=== PATIENT | female | born 2000 ===

== ENCOUNTER 2020-09-13 04:16 | Inpatient (IN) | payer BC, SELFPAY ==
[2020-09-13] VITALS (24 sets, daily range): BP systolic 95–114; BP diastolic 45–64; PULSE 66–137; RESP 15–20; TEMP 36.1–38.1; O2SAT 94–100; BMI 23.3; BMI 21.7
--- NOTE | ~2020-09-13 | CT_ITS ---
EXAMINATION: CT ABDOMEN AND PELVIS WITH CONTRAST CLINICAL INFORMATION: Right lower quadrant pain COMPARISON: None TECHNIQUE: Multidetector volumetric images were obtained from the superior aspect of the liver through the pubic symphysis following administration 75 mL of Omnipaque 350 intravenous contrast. Sagittal and coronal reformatted images were obtained on the technologist's workstation. Oral contrast: No This CT examination was performed using dose optimization techniques as appropriate, variously including the following: *Automated exposure control *Adjustment of mA and/or kV according to patient size (this includes techniques or standardized protocols for targeted exams where dose is matched to indication/reason for exam; i.e. extremities or head) *Use of iterative reconstruction technique DLP: 460 mGy-cm FINDINGS: LUNG BASES: The visualized lung bases are unremarkable. LIVER, GALLBLADDER, AND BILIARY TREE: The liver is normal in size, shape, and attenuation. Subcentimeter hypodensity in the dome of the right hepatic lobe is too small to characterize, statistically favoring a cyst. No biliary ductal dilatation is present. The gallbladder is unremarkable with no evidence of radiopaque gallstones, gallbladder wall thickening, or obvious pericholecystic inflammatory changes. PANCREAS: Unremarkable. SPLEEN: Unremarkable. ADRENAL GLANDS: Unremarkable. KIDNEYS AND URETERS: The kidneys are normal in size, shape, and attenuation. Tiny hypodensity in the lower right kidney favors a cyst. No hydronephrosis, hydroureter, or obstructing calculi seen. No perinephric stranding. BLADDER: Unremarkable. GASTROINTESTINAL TRACT: No evidence of bowel obstruction. No significant bowel wall thickening is seen. The appendix contains fluid and appendicoliths, measuring up to 7 mm in diameter. Subtle periappendiceal stranding is noted. No free fluid or free air is seen. ABDOMINAL WALL: No significant hernia is appreciated. LYMPH NODES: Normal. VASCULAR: Unremarkable for patient age. PELVIC VISCERA: Unremarkable. OSSEOUS STRUCTURES: Unremarkable. CT/CT abdomen pelvis w con IMPRESSION: Mildly dilated, fluid-filled appendix with appendicoliths and subtle adjacent stranding. Appearance is concerning for mild/early changes of acute appendicitis in the setting of right lower quadrant pain.
--- NOTE | 2020-09-13 04:30 | PC.NURSE ---
PT TO ROOM WITH C/O LOWER ABD PAIN WHICH STARTED BEFORE 1600 YESTERDAY. PT CHG INTO GOWN AND MD AT BEDSIDE FOR EVAL.
--- NOTE | 2020-09-13 04:30 | ED.ABDPAIN ---
HPI - Abdominal Pain General Chief Complaint: Abdominal Pain Stated Complaint: ABDOMINAL PAIN Time Seen by Provider: 09/13/20 04:30 Source: patient and EMS Mode of arrival: EMS Limitations: no limitations History of Present Illness HPI narrative: 19 yo female otherwise healthy here with periumbilical pain with nausea that has worsened since 4pm tried naprosyn with no relief MD elicited complaint: abdominal pain Pertinent past history: none Onset (ago): hour(s) (12) Pain Consistency: constant Location: epigastric and periumbilical Severity: moderate Quality: stabbing Radiation: none Migration to: no migration Exacerbating factors: movement Relieving factors: nothing Associated symptoms: nausea and vomiting Treatments prior to arrival: NSAIDs Related Data Allergies Allergy/AdvReac Type Severity Reaction Status Date / Time No Known Allergies Allergy Verified 09/13/20 04:30 Review of Systems Review of Systems Constitutional : No Weight loss, No Fever, No Chills ENT/Mouth : No sore throat, No Rhinorrhea Eyes: No Swelling, No Redness Cardiovascular : No Chest Pain, No SOB, NoEdema Respiratory : No Cough, No Sputum, No Wheezing Gastrointestinal : Positive Nausea, pos Vomiting, no Diarrhea, positive abdominal Pain, No Hematochezia, No Melena Genitourinary : No Dysuria, No Urinary Frequency, No Hematuria, No Urgency Musculoskeletal : No joint pain, No Myalgias, No Joint Swelling Skin : No Skin Lesions, No rash Neuro : No Weakness, No Numbness, No Dizziness, No Headache Psych : No Anxiety/Panic, No Depression Heme/Lymph: No Bruising, No Lymphadenopathy Endocrine : No Polyuria, No Polydipsia All other systems reviewed and are negative. Physical Exam Vital Signs: Vital Signs: Last Vital Signs Temp 98.5 F 09/13/20 06:00 Pulse 84 09/13/20 06:00 Resp 16 09/13/20 06:00 BP 96/60 09/13/20 06:00 Pulse Ox 100 09/13/20 06:00 Body Mass Index 23.3 Appearance: Alert. Oriented X3. No acute distress. Eyes: Pupils equal, round and reactive to light. ENT: Pharynx normal. Neck: Normal inspection. Neck supple. CVS: Normal heart rate and rhythm. Pulses normal. Respiratory: No respiratory distress. Breath sounds normal. Abdomen: Soft and moderate periumbilical pain with RLQ ttp as well, pos Rovsing sign Skin: Skin warm and dry. Normal skin color. Normal skin turgor. Extremities: No lower extremity edema. No calf ttp Neuro: Oriented X 3. No motor deficit. No sensory deficit. Course Course Course Narrative: at this time 608am infection suspected from appendicitis, IV zosyn ordered along with lactic acid and cultures surgery called 615am plan to admit to surgery MDM - Abdominal Pain MDM Narrative Medical decision making narrative: 19 yo female no PMH here with lower abdominal pain n/v since 4pm yesterday - at this time will need labs, IVF, IV morphine for pain, CT scan for appendicitis. Lab Data Result diagrams: 09/13/20 04:57 09/13/20 04:57 Labs: Lab Results 09/13/20 09/13/20 09/13/20 Range/Units 04:57 04:57 04:57 WBC 17.2 H (4.8-10.8) X10*3/uL RBC 4.39 (4.20-5.50) X10*6/uL Hgb 12.1 (12.0-16.0) g/dl Hct 36.6 L (37-47) % MCV 83.4 (80-98) fL MCH 27.6 (27.0-33.0) pg MCHC 33.1 (31.0-35.0) g/dl RDW 13.0 (11.0-16.0) % Plt Count 270 (160-400) X10*3/uL MPV 10.6 (9.4-12.3) fL Immature Gran % (Auto) 0.3 (0.0-0.4) % Neut % (Auto) 82.3 H (45-73) % Lymph % (Auto) 7.6 L (20-40) % [place] % (Auto) 8.5 (2-11) % Eos % (Auto) 1.0 (0-4) % Baso % (Auto) 0.3 (0-2) % Lymph # (Auto) 1.3 (1.2-4.9) X10*3/uL [place] # (Auto) 1.5 H (0.1-1.2) X10*3/uL Eos # (Auto) 0.2 (0.0-0.4) X10*3/uL Baso # (Auto) 0.1 (0.0-0.2) X10*3/uL Abs Immat Gran (auto) 0.06 H (0.00-0.03) X10*3/uL Absolute Neuts (auto) 14.1 H (2.0-8.3) X10*3/uL Absolute Nucleated RBC 0.000 (0.0-0.012) X10*3/uL Nucleated RBC % (auto) 0.0 (0.0-0.2) /100WBC Hold Blue Top SEE NOTE Sodium 139 (135-145) mmol/L Potassium 3.6 (3.3-5.1) mmol/L Chloride 107 (96-108) mmol/L Carbon Dioxide 23 (22-29) mmol/L Anion Gap 13 (12-20) BUN 14 (9-16) mg/dL Creatinine 0.64 (0.5-1.4) mg/dL Estim Creat Clear Calc 106.7 Estimated GFR > 60 Random Glucose 107 (60-115) mg/dL Calcium 8.7 (8.4-10.2) mg/dL Magnesium 1.8 (1.6-2.6) mg/dL Total Bilirubin 0.3 (0.0-1.0) mg/dL Direct Bilirubin 0.2 (0.0-0.5) mg/dL AST 15 (5-31) U/L ALT 11 (0-31) U/L Alkaline Phosphatase 57 (39-117) U/L Total Protein 6.9 (6.5-8.0) g/dL Albumin 4.3 (3.5-5.0) g/dL Lipase 37 (8-78) U/L Urine Color Urine Appearance Urine pH (5.0-8.0) Ur Specific [place] (1.005-1.025) Urine Protein (NEG-TRACE) MG/DL Urine Glucose (UA) (NEG) MG/DL Urine Ketones (NEG) MG/DL Urine Blood (NEG) Urine Nitrite (NEG) Ur Leukocyte Esterase (NEG) Urine Test (NEGATIVE) 09/13/20 09/13/20 Range/Units 04:57 04:57 WBC (4.8-10.8) X10*3/uL RBC (4.20-5.50) X10*6/uL Hgb (12.0-16.0) g/dl Hct (37-47) % MCV (80-98) fL MCH (27.0-33.0) pg MCHC (31.0-35.0) g/dl RDW (11.0-16.0) % Plt Count (160-400) X10*3/uL MPV (9.4-12.3) fL Immature Gran % (Auto) (0.0-0.4) % Neut % (Auto) (45-73) % Lymph % (Auto) (20-40) % [place] % (Auto) (2-11) % Eos % (Auto) (0-4) % Baso % (Auto) (0-2) % Lymph # (Auto) (1.2-4.9) X10*3/uL [place] # (Auto) (0.1-1.2) X10*3/uL Eos # (Auto) (0.0-0.4) X10*3/uL Baso # (Auto) (0.0-0.2) X10*3/uL Abs Immat Gran (auto) (0.00-0.03) X10*3/uL Absolute Neuts (auto) (2.0-8.3) X10*3/uL Absolute Nucleated RBC (0.0-0.012) X10*3/uL Nucleated RBC % (auto) (0.0-0.2) /100WBC Hold Blue Top Sodium (135-145) mmol/L Potassium (3.3-5.1) mmol/L Chloride (96-108) mmol/L Carbon Dioxide (22-29) mmol/L Anion Gap (12-20) BUN (9-16) mg/dL Creatinine (0.5-1.4) mg/dL Estim Creat Clear Calc Estimated GFR Random Glucose (60-115) mg/dL Calcium (8.4-10.2) mg/dL Magnesium (1.6-2.6) mg/dL Total Bilirubin (0.0-1.0) mg/dL Direct Bilirubin (0.0-0.5) mg/dL AST (5-31) U/L ALT (0-31) U/L Alkaline Phosphatase (39-117) U/L Total Protein (6.5-8.0) g/dL Albumin (3.5-5.0) g/dL Lipase (8-78) U/L Urine Color DARK YELLOW Urine Appearance HAZY Urine pH 7.0 (5.0-8.0) Ur Specific [place] 1.020 (1.005-1.025) Urine Protein NEG (NEG-TRACE) MG/DL Urine Glucose (UA) NEG (NEG) MG/DL Urine Ketones NEG (NEG) MG/DL Urine Blood NEG (NEG) Urine Nitrite NEG (NEG) Ur Leukocyte Esterase NEG (NEG) Urine Test NEGATIVE (NEGATIVE) Discharge Plan Discharge Clinical Impression: Abdominal pain Qualifiers: Abdominal location: lower abdomen, unspecified Qualified Code(s): R10.30 - Lower abdominal pain, unspecified Leukocytosis Qualifiers: Leukocytosis type: unspecified Qualified Code(s): D72.829 - Elevated white blood cell count, unspecified Acute appendicitis Qualifiers: Acute appendicitis type: with localized peritonitis Appendicitis gangrene presence: without gangrene Appendicitis perforation presence: without perforation Appendicitis abscess presence: without abscess Qualified Code(s): K35.30 - Acute appendicitis with localized peritonitis, without perforation or gangrene Patient Disposition: Admitted As Inpatient [facility] Past Medical History Attestation statement: The following information was validated with the patient. Medical History No active medical problems Social History Social History (Updated 09/13/20 @ 04:38 by Jeanna Nuñez DO) Smoking Status: Never smoker Use of substances other than those prescribed or required for medical reasons: No Advance Directives: No
[2020-09-13] MEDS: Morphine Sulfate 4 MG/ML CARTRIDGE IVPUSH ×3 (05:06→09:27)
[2020-09-13] MEDS: 0.9 % Sodium Chloride 1,000 ML 999 ML IVCONT ×2 (05:07→06:22)
[2020-09-13] MEDS: ondansetron HCL 4 MG/2 ML VIAL IVPUSH (05:07)
[2020-09-13 05:15] LABS: Basophils Absolute Auto 0.1 X10*3/uL (0.0-0.2); Basophils Percent Auto 0.3 % (0-2); Eosinophils Absolute Auto 0.2 X10*3/uL (0.0-0.4); Hematocrit 36.6 % (37-47); Hemoglobin 12.1 g/dl (12.0-16.0); Imm Gran Abs Auto 0.06 X10*3/uL (0.00-0.03); Imm Gran Pct Auto 0.3 % (0.0-0.4); Lymphocytes Absolute Auto 1.3 X10*3/uL (1.2-4.9); Lymphocytes Percent Auto 7.6 % (20-40); MANUAL DIFF FLAG NO; Mean Corpuscular HGB Conc 33.1 g/dl (31.0-35.0); Mean Corpuscular Hemoglobin 27.6 pg (27.0-33.0); Mean Corpuscular Volume 83.4 fL (80-98); Mean Platelet Volume 10.6 fL (9.4-12.3); Monocytes Absolute Auto 1.5 X10*3/uL (0.1-1.2); Monocytes Percent Auto 8.5 % (2-11); Neutrophils Absolute Auto 14.1 X10*3/uL (2.0-8.3); Neutrophils Percent Auto 82.3 % (45-73); Platelet Count 270 X10*3/uL (160-400); Red Blood Count 4.39 X10*6/uL (4.20-5.50); White Blood Count 17.2 X10*3/uL (4.8-10.8)
[2020-09-13 05:17] LABS: Glucose Urine UA NEG (NEG); Leukocyte Esterase Urine NEG (NEG); Nitrite Urine NEG (NEG); Urine Blood NEG (NEG); Urine Ketones NEG (NEG); Urine Protein NEG (NEG-TRACE)
[2020-09-13 05:18] LABS: Appearance Urine HAZY; Color Urine DARK YELLOW; UPreg QC Valid YES; Urine Pregnancy NEGATIVE (NEGATIVE)
--- NOTE | 2020-09-13 05:26 | PC.NURSE ---
IV PLACED TO LAC, LABS DRAWN TO LAB. PT RATING PAIN 8/10 AND MEDICATED PER EMAR FOR PAIN AND NAUSEA. NS UP AND RUNNING W/O SITE INTACT.
[2020-09-13 05:39] LABS: Alanine Aminotransferase 11 U/L (0-31); Albumin Level 4.3 g/dL (3.5-5.0); Alkaline Phosphatase 57 U/L (39-117); Aspartate Amino Transferase 15 U/L (5-31); Bilirubin Direct 0.2 mg/dL (0.0-0.5); Bilirubin Total 0.3 mg/dL (0.0-1.0); Blood Urea Nitrogen 14 mg/dL (9-16); Calcium 8.7 mg/dL (8.4-10.2); Creatinine Clr Calc Pharmacy 106.7; Estimated Glomerular Filt Rate > 60; Glucose Random 107 mg/dL (60-115); Lipase 37 U/L (8-78); Magnesium 1.8 mg/dL (1.6-2.6); Total Protein 6.9 g/dL (6.5-8.0)
[2020-09-13 05:45] LABS: Anion Gap 13 (12-20); Carbon Dioxide 23 mmol/L (22-29); Chloride 107 mmol/L (96-108); Potassium 3.6 mmol/L (3.3-5.1); Sodium 139 mmol/L (135-145)
--- NOTE | 2020-09-13 05:47 | PC.NURSE ---
PT TO CT AMBULATORY.
[2020-09-13] MEDS: iohexoL 350 MG/ML 75 ML INFUS..BTL IV (06:02)
[2020-09-13] MEDS: Piperacillin Sodium/Tazobactam 3.375 GM in 0.9 % Sodium Chloride 50 ML IV ×2 (06:26→14:31)
--- NOTE | 2020-09-13 06:29 | PC.NURSE ---
LACTIC ACID AND BC X 2 OBTAINED TO LAB. PT MEDICATED PER EMAR.
[2020-09-13 06:41] LABS: COVID-19 Test Negative (Negative)
[2020-09-13 06:42] LABS: Lactic Acid 0.7 mmol/L (0.5-2.0)
--- NOTE | 2020-09-13 07:05 | PC.NURSE ---
PT RATING ABD PAIN 02/14. PT MEDICATED FOR PAIN PER EMAR. REPORT GIVEN TO GIN JANE
[2020-09-13] MEDS: 0.9 % Sodium Chloride 1,000 ML 125 ML IVCONT ×2 (07:15→18:09)
--- NOTE | 2020-09-13 07:58 | P.HPGS_ITS ---
History of Present Illness History of Present Illness Date of Service: 09/13/20 Chief complaint: ABDOMINAL PAIN Narrative: Zuleima Bruce is a 19 year old female presenting with complaints of a bdominal pain begining in the periumbilical and epigastric region, radiating to the right lower quadrant starting last night. She reports nausea without vomiting and denies fever or chills. The pain is shart and constant, 7-8/10 in severity, which increases with movement or coughing. She denies a previous history of similar pain. Workup in the ED revealed an elevated WBC and CT findings consistent with acute appendicitis. Review of Systems Constitutional: Constitutional: Denies chills, Denies fever(s), Denies he adache(s) and Reports poor appetite ENT: Denies dizziness and Denies headache(s) Cardiovascular: Cardiovascular: Denies chest pain, Denies rapid heart rate, Denies palpitations and Denies slow heart rate Respiratory: Respiratory: Denies chest congestion, Denies cough, Denies pain on inspiration and Denies wheezing Gastrointestinal: Gastrointestinal: Reports abdominal pain, Denies bloating, Denies change in stool character, Denies constipation, Denies diarrhea, Reports nausea, Denies vomiting and Denies hematemesis Musculoskeletal: Musculoskeletal: Denies back pain, Denies arthralgias, Denies joint swelling and Denies numbness Integumentary/Breasts: Skin/Breast: Denies change in pigmentation, Denies erythema and Denies rash Neurologic: Denies dizziness, Denies headache(s) and Denies numbness Psychiatric: Psychiatric: Denies anxiety and Denies depression Endocrine: Endocrine: Denies palpitations Hematologic/Lymphatic: Hematologic/Lymphatic: Denies easy bleeding, Denies easy bruising and Denies lymphadenopathy Allergic/Immunologic: Allergic/Immunologic: Denies wheezing PMFSH Past Medical History Medical History No active medical problems Social History Social History Smoking Status: Never smoker Use of substances other than those prescribed or required for medical reasons: No Advance Directives: No Meds Allergies Allergy/AdvReac Type Severity Reaction Status Date / Time No Known Allergies Allergy Verified 09/13/20 04:30 Active Medications: Current Medications Generic Name Dose Route Start Last Admin Trade Name Freq PRN Reason Stop Dose Admin Sodium Chloride 1,000 mls @ 125 mls/hr 09/13/20 06:15 09/13/20 07:15 Ns IVCONT 125 mls/hr .Q8H MARVEL Administration Physical Exam Vital Signs: Vital Signs: Last Vital Signs Temp 98 F 09/13/20 07:17 Pulse 84 09/13/20 07:17 Resp 17 09/13/20 07:17 BP 96/60 09/13/20 07:17 Pulse Ox 99 09/13/20 07:17 Body Mass Index 23.3 Const: General: cooperative, healthy appearing, comfortable, no acute distress, alert and awake Eyes: General: appearance normal, both eyes and all related structures Resp: Effort & Inspection: normal respiratory effort, no cough, no stridor and not tachypneic Cardio: Jugular venous distension: no JVD Rate: regular rate Rhythm: regular rhythm GI: Other: soft, nondistended, tender in the right lower quadrant, localized rebound, positive Rovsing's sign, no mass Palpation (GI): Tenderness to palpation present (GI) Abdomen image: 1. tender Skin: General skin exam: no rashes or lesions noted, dry skin and no erythema Extrem: General: Yes no clubbing, cyanosis or edema Results Results Labs: Short CBC 09/13/20 Range/Units 04:57 WBC 17.2 H (4.8-10.8) X10*3/uL Hgb 12.1 (12.0-16.0) g/dl Hct 36.6 L (37-47) % Plt Count 270 (160-400) X10*3/uL BMP 09/13/20 04:57 Sodium 139 Potassium 3.6 Chloride 107 Carbon Dioxide 23 BUN 14 Creatinine 0.64 Calcium 8.7 Liver Function 09/13/20 Range/Units 04:57 Total Bilirubin 0.3 (0.0-1.0) mg/dL Direct Bilirubin 0.2 (0.0-0.5) mg/dL AST 15 (5-31) U/L ALT 11 (0-31) U/L Alkaline Phosphatase 57 (39-117) U/L Albumin 4.3 (3.5-5.0) g/dL Urine 09/13/20 09/13/20 Range/Units 04:57 04:57 Urine Color DARK YELLOW Urine Appearance HAZY Urine pH 7.0 (5.0-8.0) Ur Specific [place] 1.020 (1.005-1.025) Urine Protein NEG (NEG-TRACE) MG/DL Urine Glucose (UA) NEG (NEG) MG/DL Urine Test NEGATIVE (NEGATIVE) Assessment and Plan (1) Acute appendicitis: Qualifiers: Acute appendicitis type: with localized peritonitis Appendicitis abscess presence: without abscess Appendicitis gangrene presence: without gangrene Appendicitis perforation presence: without perforation Qualified Code(s): K35.30 - Acute appendicitis with localized peritonitis, without perforation or gangrene Status: Acute 19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 I reviewed the findings in detail with the patient. Although antibiotics are an option for treatment, the fecolith does increase the possibility of a recurrent episode of appendicitis. After a discussion of the procedure, alternatives and risks, she consents to a laparoscopic or possible open appendectomy. She will be added on to the OR schedule for later today. Procedures Date of Service Date of Service: 09/13/20
[2020-09-13 09:01] LABS: COVID-19 Test Negative (Negative); IDNOW Serial# 9DD0AD1C
--- NOTE | 2020-09-13 11:40 | PC.NURSE ---
rnZack previously gave report to the OR/SS staff prior to this nurse coming in, patient was just awaiting for staff to bring her to SS upon this nurses arrival.
--- NOTE | 2020-09-13 11:45 | MHC.SHP ---
Pre-Procedural Eval Section A The patient is an INPATIENT: Yes Section B Chief Complaint: ABDOMINAL PAIN Allergies: Allergies Allergy/AdvReac Type Severity Reaction Status Date / Time No Known Allergies Allergy Verified 09/13/20 04:30 Plan Diagnosis/Plan: Unchanged I have reviewed the history and physical and performed a pertinent physical examination on my patient. No changes have occurred unless specified.
[2020-09-13] MEDS: Lactated Ringers 1,000 ML 50 ML IV (12:00)
--- NOTE | 2020-09-13 12:55 | P.CONAN_ITS ---
Documented by User: Yulissa Anti 09/13/20 12:58 [facility] Active Problems Active Problems: All Active Problems (Updated 09/13/20 @ 06:11 by Jeanna Nuñez DO) Abdominal pain (Acute) Leukocytosis (Acute) Acute appendicitis (Acute) Past Medical History Medical History No active medical problems Social History Social History Smoking Status: Never smoker Use of substances other than those prescribed or required for medical reasons: No Advance Directives: No Meds Allergies Allergy/AdvReac Type Severity Reaction Status Date / Time No Known Allergies Allergy Verified 09/13/20 04:30 Active Medications: Current Medications Generic Name Dose Route Start Last Admin Trade Name Freq PRN Reason Stop Dose Admin Hydromorphone HCl 0.5 mg 09/13/20 07:56 Hydromorphone Hcl 0.5 Mg/0.5 Ml Syringe IVPUSH Q2H PRN abdominal pain Sodium Chloride 1,000 mls @ 125 mls/hr 09/13/20 06:15 09/13/20 07:15 Ns IVCONT 125 mls/hr .Q8H MARVEL Administration Piperacillin Sod/Tazobactam 50 mls @ 100 mls/hr 09/13/20 08:00 Sod 3.375 gm/ Sodium Chloride IV Q6H MARVEL Ondansetron HCl 4 mg 09/13/20 07:56 Ondansetron Hcl 4 Mg/2 Ml Vial IVPUSH QID PRN Nausea Exam Exam Date and Time: September 13, 2020 1255 Height,Weight and Vital Signs: Height 5 ft 1 in Weight 56 kg Last Vital Signs Temp 99.3 F 09/13/20 11:53 Pulse 105 H 09/13/20 11:53 Resp 16 09/13/20 11:53 BP 107/57 L 09/13/20 11:53 Pulse Ox 100 09/13/20 11:53 Pertinent Lab Results Pertinent Lab Results: Laboratory Tests 09/13/20 09/13/20 09/13/20 04:57 04:57 04:57 WBC 17.2 H RBC 4.39 Hgb 12.1 Hct 36.6 L MCV 83.4 MCH 27.6 MCHC 33.1 RDW 13.0 Plt Count 270 MPV 10.6 Immature Gran % (Auto) 0.3 Neut % (Auto) 82.3 H Lymph % (Auto) 7.6 L [place] % (Auto) 8.5 Eos % (Auto) 1.0 Baso % (Auto) 0.3 Lymph # (Auto) 1.3 [place] # (Auto) 1.5 H Eos # (Auto) 0.2 Baso # (Auto) 0.1 Abs Immat Gran (auto) 0.06 H Absolute Neuts (auto) 14.1 H Absolute Nucleated RBC 0.000 Nucleated RBC % (auto) 0.0 Hold Blue Top SEE NOTE Sodium 139 Potassium 3.6 Chloride 107 Carbon Dioxide 23 Anion Gap 13 BUN 14 Creatinine 0.64 Estim Creat Clear Calc 106.7 Estimated GFR > 60 Random Glucose 107 Lactic Acid Calcium 8.7 Magnesium 1.8 Total Bilirubin 0.3 Direct Bilirubin 0.2 AST 15 ALT 11 Alkaline Phosphatase 57 Total Protein 6.9 Albumin 4.3 Lipase 37 Urine Color Urine Appearance Urine pH Ur Specific [place] Urine Protein Urine Glucose (UA) Urine Ketones Urine Blood Urine Nitrite Ur Leukocyte Esterase Urine Test COVID-19 (IGOR) COVID-[employer] 09/13/20 09/13/20 09/13/20 04:57 04:57 05:40 WBC RBC Hgb Hct MCV MCH MCHC RDW Plt Count MPV Immature Gran % (Auto) Neut % (Auto) Lymph % (Auto) [place] % (Auto) Eos % (Auto) Baso % (Auto) Lymph # (Auto) [place] # (Auto) Eos # (Auto) Baso # (Auto) Abs Immat Gran (auto) Absolute Neuts (auto) Absolute Nucleated RBC Nucleated RBC % (auto) Hold Blue Top Sodium Potassium Chloride Carbon Dioxide Anion Gap BUN Creatinine Estim Creat Clear Calc Estimated GFR Random Glucose Lactic Acid 0.7 Calcium Magnesium Total Bilirubin Direct Bilirubin AST ALT Alkaline Phosphatase Total Protein Albumin Lipase Urine Color DARK YELLOW Urine Appearance HAZY Urine pH 7.0 Ur Specific [place] 1.020 Urine Protein NEG Urine Glucose (UA) NEG Urine Ketones NEG Urine Blood NEG Urine Nitrite NEG Ur Leukocyte Esterase NEG Urine Test NEGATIVE COVID-19 (IGOR) COVID-19 [facility] 09/13/20 09/13/20 06:22 08:31 WBC RBC Hgb Hct MCV MCH MCHC RDW Plt Count MPV Immature Gran % (Auto) Neut % (Auto) Lymph % (Auto) [place] % (Auto) Eos % (Auto) Baso % (Auto) Lymph # (Auto) [place] # (Auto) Eos # (Auto) Baso # (Auto) Abs Immat Gran (auto) Absolute Neuts (auto) Absolute Nucleated RBC Nucleated RBC % (auto) Hold Blue Top Sodium Potassium Chloride Carbon Dioxide Anion Gap BUN Creatinine Estim Creat Clear Calc Estimated GFR Random Glucose Lactic Acid Calcium Magnesium Total Bilirubin Direct Bilirubin AST ALT Alkaline Phosphatase Total Protein Albumin Lipase Urine Color Urine Appearance Urine pH Ur Specific [place] Urine Protein Urine Glucose (UA) Urine Ketones Urine Blood Urine Nitrite Ur Leukocyte Esterase Urine Test COVID-19 (IGOR) Negative Negative COVID-19 Clin Com See Note See Note Documented by User: Edgard Darden MD 09/13/20 13:24 [facility] Past Medical History Medical History No active medical problems Social History Social History Smoking Status: Never smoker Use of substances other than those prescribed or required for medical reasons: No Advance Directives: No Meds Allergies Allergy/AdvReac Type Severity Reaction Status Date / Time No Known Allergies Allergy Verified 09/13/20 04:30 Exam Airway Mallampati Class: I TM Dist: >3cm Neck ROM: Full Loose/Missing/Broken Teeth: No Heart: RRR Lungs: NL Assessment and Plan Assessment Anesthesia Assessment: Anesthesia Plan Discussed and Chart Reviewed Final Anesthetic Review NPO: Yes ASA Class: I and Emergency Final Preanesthetic Review: No Changes in Pt Med Stat, Meds/Allgs Chart Reviewed, Consent Obtained/Reviewed and Anes Risks/Benef Reviewed Patient Risk: Low Procedure Risk: Low Anesthetic Plan Anesthetic Plan: GA Disposition: Standard PACU
--- NOTE | 2020-09-13 13:56 | P.BOP_ITS ---
Brief Operative Note Date of Service: 09/13/20 <TROY Lopes Last Filed: 09/13/20 13:57> Pre-op diagnosis: acute appendicitis <TROY Lopes Last Filed: 09/13/20 13:57> Post-op diagnosis: same <TROY Lopes Last Filed: 09/13/20 13:57> Procedure: laparoscopic appendectomy <TROY Lopes Last Filed: 09/13/20 13:57> Implants: None <TROY Lopes Last Filed: 09/13/20 13:57> Surgeon: ABIMBOLA SHAFFER MD <TROY Lopes Last Filed: 09/13/20 13:57> Anesthesia: GETA <TROY Lopes Last Filed: 09/13/20 13:57> Pediatrician Active Practice: [facility] <TROY Lopes Last Filed: 09/13/20 13:57> Estimated blood loss (mL): 5 <TROY Lopes Last Filed: 09/13/20 13:57> Pathology: other (appendix) <TROY Lopes Last Filed: 09/13/20 13:57> Condition: stable <TROY Lopes Last Filed: 09/13/20 13:57> Disposition: PACU <TROY Lopes Last Filed: 09/13/20 13:57>
--- NOTE | 2020-09-13 13:57 | P.OP_ITS ---
Operative Note Operative Note Date of Service: 09/13/20 Narrative: Preoperative diagnosis: Acute appendicitis Postoperative diagnosis: Same Procedure: Laparoscopic appendectomy Surgeon: Mack Mendez MD Light Bulb Assembler: PABLO Lopes Anesthesia: General endotracheal Indications for procedure: 19-year-old female presenting with a 24 hour history of abdominal pain in the right lower quadrant, found to have acute appendicitis by CT. Operative findings: Acute appendicitis without perforation or abscess Specimen: Appendix Estimated blood loss: 2 mL Complications: None Procedure details: Patient was brought to the OR and placed in a supine position. After administering general anesthesia the patient's abdomen was prepped with ChloraPrep and draped in a sterile fashion. A surgical time-out was called and consent confirmed. Patient received preoperative antibiotics and Venodyne boots were in place. Local anesthesia consisting of 0.75% Sensorcaine with epinephrine was infiltrated in periumbilical region. A 5 mm incision was made below the umbilicus and carried down through subcutaneous tissue. A Veress needle was then inserted while elevating abdominal cavity with towel clips. After a positive drop test the abdomen was insufflated to a pressure of 15 mm of mercury. The Veress needle was removed and a 5 mm trocar inserted. The camera was then inserted in the abdomen explored. A 2nd 5 mm trocars placed in the lower midline. A 12 mm trocar was then placed in the left lower quadrant. The patient was then placed in a Trendelenburg position and rotated to the left. The appendix was identified in the right lower quadrant and brought up using blunt dissecting clamps. The mesentery of the appendix was then divided using the LigaSure. The appendiceal artery was cauterized and divided using the LigaSure. Dissection was continued down to the base of the cecum. An Endo-FILOMENA stapler with a purple reload was then used to divide the appendix at the base with the cecum. The appendix was then placed in Endo-Catch bag and brought out through the left lower quadrant incision. The abdomen was then irrigated with saline solution and suctioned dry. Wounds were checked for hemostasis. CO2 was then evacuated from the abdominal cavity and all trocars removed. Fascia was closed in the left lower quadrant incision using a [id number] 0 Polysorb suture. Skin was closed at all incisions using a subcuticular 4-0 Polysorb suture. Steri-Strips 2 x 2 gauze and Tegaderm were then applied. The patient tolerated the procedure well. Sponge, instrument, needle counts reported as correct. The patient was transferred to PACU in stable condition.
[2020-09-13] MEDS: fentaNYL citrate/PF 100 MCG/2 ML VIAL 25 MCG IVPUSH (15:23)
[2020-09-13] MEDS: oxyCODONE HCl Immed Release 5 MG TABLET PO (18:18)
[2020-09-14] MEDS: 0.9 % Sodium Chloride 1,000 ML 125 ML IVCONT ×2 (00:29→08:54)
[2020-09-14 04:00] VITALS: BP 95/48; PULSE 72; RESP 16; TEMP 36.9; O2SAT 97
[2020-09-14 07:17] VITALS: BP 102/50; PULSE 70; RESP 16; TEMP 36.6; O2SAT 98
--- NOTE | 2020-09-14 08:23 | P.PNGS_ITS ---
Subjective Subjective Date of Service: 09/14/20 <Gardenia Goddard PA-C - Last Filed: 09/14/20 08:26> 09/14/20 <Sachin Clark MD - Last Filed: 09/14/20 09:07> Interval history: Feels much better. Has mild pain at incision sites and RLQ, comfortable with analgesics. Tolerating solid diet. OOB and ambulating. Wants to go home later today. <Gardenia Goddard PA-C - Last Filed: 09/14/20 08:26> Physical Exam Vital Signs: Vital Signs: Last Vital Signs Temp 97.8 F 09/14/20 07:17 Pulse 70 09/14/20 07:17 Resp 16 09/14/20 07:17 BP 102/50 L 09/14/20 07:17 Pulse Ox 98 09/14/20 07:17 Body Mass Index 21.7 <Gardenia Goddard PA-C - Last Filed: 09/14/20 08:26> Const: General: healthy appearing, comfortable, no acute distress and alert <Gardenia Goddard PA-C - Last Filed: 09/14/20 08:26> Orientation/consciousness: patient oriented x3 <TROY Lopes Last Filed: 09/14/20 08:26> Eyes: Sclerae: sclerae normal <Gardenia Goddard PA-C - Last Filed: 09/14/20 08:26> Resp: Effort & Inspection: normal respiratory effort <Gardenia Goddard PA-C - Last Filed: 09/14/20 08:26> Cardio: Rate: regular rate <Gardenia Goddard PA-C - Last Filed: 09/14/20 08:26> GI: Inspection: Yes normal to inspection and Yes incision (dressings intact) <TROY Lopes Last Filed: 09/14/20 08:26> Palpation (GI): Soft to palpation, Tenderness to palpation present (GI) (mild, incisional), no guarding and No Rebound tenderness present <TROY Lopes Last Filed: 09/14/20 08:26> Percussion: Yes normal to percussion <Gardenia Goddard PA-C - Last Filed: 09/14/20 08:26> Skin: General skin exam: no rashes or lesions noted <Gardenia Goddard PA-C - Last Filed: 09/14/20 08:26> Neuro: General: patient oriented x3 <Gardenia Goddard PA-C - Last Filed: 09/14/20 08:26> Extrem: General: Yes no clubbing, cyanosis or edema <Gardenia Goddard PA-C - Last Filed: 09/14/20 08:26> Progress Note: A&P Assessment and plan (1) Acute appendicitis: Status: Acute <Gardenia Goddard PA-C - Last Filed: 09/14/20 08:26> (2) S/P laparoscopic appendectomy: Status: Acute <Gardenia Goddard PA-C - Last Filed: 09/14/20 08:26> Assessment and Plan: Doing very well post op, comfortable. VSS. Abd exam benign, dressings intact, appropriate post op tenderness. Will reassess later today for likely d/c to home. patient comfortable with plan. <Gardenia Goddard PA-C - Last Filed: 09/14/20 08:26> Says she feels comfortable Good pain control Tolerating diet Abdomen soft She looks well Possible DC home today Seen and examined -agree with SHILO Goddard <Sachin Clark MD - Last Filed: 09/14/20 09:07> Fall Risk Details Current Medications: Current Medications Generic Name Dose Route Start Last Admin Trade Name Treva PRN Reason Stop Dose Admin Hydromorphone HCl 0.5 mg 09/13/20 07:56 Hydromorphone Hcl 0.5 Mg/0.5 Ml Syringe IVPUSH Q2H PRN abdominal pain Sodium Chloride 1,000 mls @ 125 mls/hr 09/13/20 06:15 09/14/20 00:29 Ns IVCONT 125 mls/hr .Q8H MARVEL Administration Acetaminophen 1,000 mg in 100 mls @ 400 mls/hr 09/13/20 20:00 09/14/20 02:17 Ofirmev IV 09/14/20 14:14 Infused Q6H MARVEL Infusion Oxycodone HCl 5 mg 09/13/20 17:34 09/13/20 18:18 Oxycodone Hcl Immed Release 5 Mg Tablet PO 5 mg Q6H PRN Administration Pain, Moderate (Pain Scale 4-6 <Gardenia Goddard PA-C - Last Filed: 09/14/20 08:26> Time Spent With Patient Time: Total time spent is greater than 50% in coordination of care (as document ed) at patient's floor/unit and/or counseling patient: <Gardenia Goddard PA-C - Last Filed: 09/14/20 08:26> Time with patient: less than 15 minutes <Gardenia Goddard PA-C - Last Filed: 09/14/20 08:26>
--- NOTE | 2020-09-14 10:44 | MHC.CM.PN ---
EMR REVIEWED, PT ADMITTED W/ACUTE APPENDECITIS AND S/P LAP APPENDECTOMY, CM MET WITH PT WHO IS ALERT AND ORIENTED, PT REPORTS SHE LIVES ON CAMPUS AT [facility], PT REPORTS IT IS HER FIRST SEMESTER AND IT IS GOING WELL, PT HAS NO FAMILY NEARBY OR IN THE [place], FATHER AND FAMILY IS IN [place], PT INDEPENDENT WITH ALL CARE, NO SERVICES. PT REPORTS SHE WILL TAKE SCRIPT WITH HER UPON D/C AND TRANSPORT WILL BRING HER TO [facility] TO HAVE SCRIPT FILLED. DISCHARGE PLAN: HOME/CAMPUS SELF-CARE, [facility] WILL TRANSPORT PT.
--- NOTE | 2020-09-14 11:14 | PM.DS ---
DS: Providers Provider Date of Service: 09/14/20 Date of admission: 09/13/20 15:22 Primary care physician: None Physician DS: Diagnosis Discharge Diagnosis (1) S/P laparoscopic appendectomy: Status: Acute (2) Acute appendicitis: Status: Acute DS: Medications Discharge Medications Home Medications: Previous Rx's Medication Instructions Recorded docusate sodium [Colace] 100 mg PO BID PRN #30 cap 09/14/20 oxycodone 5 mg PO Q4H PRN #20 tab 09/14/20 DS: Summary Hospital Course Hospital Course: BRIEF HPI: Zuleima Bruce is a 19 year old female presenting with complaints of abdominal pain begining in the periumbilical and epigastric region, radiating to the right lower quadrant starting last night. She reports nausea without vomiting and denies fever or chills. The pain is sharP and constant, 7-8/10 in severity, which increases with movement or coughing. She denies a previous history of similar pain. Workup in the ED revealed an elevated WBC and CT findings consistent with acute appendicitis. HOSPITAL COURSE: The patient was admitted to the surgical service for further treatment of the acute appendicitis. It was recommended to proceed with a laparoscopic appendectomy. The patient agreed and was added onto the OR schedule for that day. On 09/13/20, a laparoscopic appendectomy was performed by Dr. Mack Mendez without complication. The patient tolerated the procedure well and was admitted to the medical/surgical floor for observation. The patient had an uncomplicated recovery course. On POD #1, she felt well overall and was comfortable. Her pain was mild at the incision sites and RLQ. She was tolerating a solid diet and OOB without difficulty. Her vitals were stable and abdomen was benign with appropriate post op tenderness and c/d/i dressings. She was reassessed later in the day and felt ready for discharge. She was discharged to home on 09/14/20 in stable condition. Status at Discharge Functional status at discharge: independent ambulation Overall status at discharge: patient is progressing back to baseline Time Spent with Patient Time attestation: Total time spent providing and/or coordinating discharge services: Discharge coordination time: Less than 30 minutes Physical Exam Vital Signs: Vital Signs: Last Vital Signs Temp 97.8 F 09/14/20 07:17 Pulse 70 09/14/20 07:17 Resp 16 09/14/20 07:17 BP 102/50 L 09/14/20 07:17 Pulse Ox 98 09/14/20 07:17 Body Mass Index 21.7 Const: General: healthy appearing, comfortable and no acute distress Orientation/consciousness: patient oriented x3 Eyes: Sclerae: sclerae normal Resp: Effort & Inspection: normal respiratory effort Cardio: Rate: regular rate GI: Inspection: No distended and Yes incision (dressing c/d/i) Palpation (GI): Soft to palpation, Tenderness to palpation present (GI) (mild, incisional ), no guarding, not rigid and No Rebound tenderness present Percussion: Yes normal to percussion Skin: General skin exam: no rashes or lesions noted Neuro: General: patient oriented x3 Extrem: General: Yes no clubbing, cyanosis or edema DS: Data Data Completed and Pending Pending studies at discharge: Pending at discharge 09/13/20 13:40 Surgical [PTH] Routine Labs on day of discharge: Preliminary micro results at discharge 09/13/20 05:40 Blood Culture - Preliminary Blood - Venous No growth after 24 hours. 09/13/20 05:40 Blood Culture - Preliminary Blood - Venous No growth after 24 hours. Discharge Plan Discharge Patient Disposition: Home, Self-Care Referrals: Mack Mendez MD [Physician] - 1 Week Physician,None [Primary Care Provider] - Discharge Medications: New docusate sodium [Colace] 100 mg capsule 100 mg PO BID PRN (Reason: constipation) Qty: 30 RF: 0 oxycodone 5 mg tablet 5 mg PO Q4H PRN (Reason: pain (scale score 7-10)) Qty: 20 RF: 0 Discharge Orders: Discharge Order (Routine); Ordered 09/14/20 Ordered By: Gardenia Goddard Diet: advance to usual diet Activity on Discharge: No heavy lifting Stand Alone Forms: Work/School Release Activity Restrictions/Additional Instructions: If the incision area is tender, you may apply an ice pack for short intervals (No more than 20 minutes on, followed by at least 20 minutes off). Do not apply heat. Do not use creams, lotions, or topical antibiotics unless instructed to do so by your surgeon. These can cause infection or allergic reaction. Ok to shower. Remove clear dressings 3 days following your procedure. You have steri strips (small white cloth strips) covering your incision- these will fall off ~1 week. No heavy lifting (>10lbs)! You can alternate Tylenol and Motrin in addition to the oxycodone. Call Your Doctor If: -Your temperature exceeds 101.5? F -You experience excessive pain or swelling -You have an unexpected reaction to medication -You have excessive bleeding -You experience continued vomiting/nausea -Your incision begins to separate -Your incision shows signs of infection such as increased redness, swelling, excessive pain, drainage (light blood or clear fluid is normal) or heat Care Plan Goals: Return to baseline health and activity following recovery period. Health Concerns: Acute appendicitis s/p lap appy Plan of Treatment: Discharge to home. F/u with Dr. Mendez in office.
[2020-09-14 12:00] VITALS: RESP 15
--- NOTE | 2020-09-14 13:34 | MHC.CM.PN ---
PT DISCHARGING TODAY 09/14/20 HOME ([facility] SELF-CARE, CAMPUS PUBLIC SAFETY TO TRANSPORT, DIRECTIONS TO FOLLOW-UP WITH SURGEON IN ONE WEEK.
--- NOTE | 2020-09-14 14:34 | HO.POSTANES ---
Post Anesthesia Evaluation Post Anesthesia Evaluation Vital Signs: Vital Signs Temp Pulse Resp BP Pulse Ox 09/14/20 12:00 15 09/14/20 07:17 97.8 F 70 16 102/50 L 98 09/14/20 04:00 98.4 F 72 16 95/48 L 97 Anesthesia: General Endotracheal-GETA Mental Status: Awake Pain Control: Satisfactory Nausea/Vomiting: None Hydration: Adequate Anesthesia-Related Issues: No Anes. Related Issues
== END 2020-09-14 14:39 | disposition home or self-care (01) | DRG 225 ==
LOC: HO.ED 07:53 → HO.SSS 09:28 → HO.S3 15:45
PROVIDERS: Emergency Medicine; Admitting Provider Surgery; Emergency Provider Emergency Medicine Emergency Medical Services; Visit Provider Surgery
PROC: 0DTJ4ZZ Resection of Appendix, Percutaneous Endoscopic Approach (ICD-10-PCS; CPT 44970; principal; 2020-09-13 12:40)
DX: K35.30 Acute appendicitis with localized peritonitis, without perforation or gangrene (principal); D72.89 Other specified disorders of white blood cells; Z20.822 Contact with and (suspected) exposure to COVID-19
CPT/HCPCS: 44970; 36415; 74177; 80048; 80076; 81003; 81025; 83605; 83690; 83735; 85025; 87040; 87635; 88304; 96365; 96375; 96376; 99285; J0131; J1170; J2250; J2270; J2405; J2543; J3010; Q9967

== ENCOUNTER 2022-11-14 21:49 | Emergency (ER) | payer BC, SELFPAY ==
[2022-11-14 21:55] VITALS: BP 113/53; PULSE 94; RESP 20; TEMP 36.4; O2SAT 95; BMI 22.6
[2022-11-14 22:17] LABS: Basophils Percent Auto 0.2 % (0-2); Eosinophils Absolute Auto 0.5 X10*3/uL (0.0-0.4); Eosinophils Percent Auto 3.8 % (0-4); Hematocrit 35.1 % (37.0-47.0); Hemoglobin 11.5 g/dl (12.0-16.0); Imm Gran Abs Auto 0.04 X10*3/uL (0.00-0.03); Imm Gran Pct Auto 0.3 % (0.0-0.4); Lymphocytes Absolute Auto 5.9 X10*3/uL (1.2-4.9); Lymphocytes Percent Auto 48.3 % (20-40); MANUAL DIFF FLAG SCAN; Mean Corpuscular HGB Conc 32.8 g/dl (31.0-35.0); Mean Corpuscular Hemoglobin 27.5 pg (27.0-33.0); Mean Platelet Volume 11.1 fL (9.4-12.3); Monocytes Absolute Auto 0.5 X10*3/uL (0.1-1.2); Monocytes Percent Auto 4.5 % (2-11); Neutrophils Absolute Auto 5.2 x10*3/uL (2.0-8.3); Neutrophils Percent Auto 42.9 % (45-73); Platelet Count 369 X10*3/uL (160-400); Red Blood Count 4.18 X10*6/uL (4.20-5.50); SCAN SMEAR FLAG 1; White Blood Count 12.1 X10*3/uL (4.8-10.8)
--- NOTE | 2022-11-14 22:25 | ED.ABDPAIN ---
HPI - Abdominal Pain General Chief Complaint: Abdominal Pain Stated Complaint: cp difficulty breathing Time Seen by Provider: 11/14/22 22:24 Source: patient Mode of arrival: ambulatory Limitations: no limitations History of Present Illness HPI narrative: Patient with allergies with injected eyes and just stuffiness last 3 days taking Claritin and ketoprofen eyedrops today she had Tea with milk after that patient suddenly noticed increased rash itching on the face and the abdominal area very anxious on arrival with increased nausea no significant shortness of breath Related Data Previous Rx's Medication Instructions Recorded docusate sodium 100 mg capsule 100 mg PO BID PRN constipation #30 09/14/20 (Colace) caps oxycodone 5 mg tablet 5 mg PO Q4H PRN pain (scale score 09/14/20 7-10) #20 tabs prednisone 20 mg tablet 40 mg PO DAILY #10 tabs 11/14/22 Allergies Allergy/AdvReac Type Severity Reaction Status Date / Time No Known Allergies Allergy Verified 11/14/22 21:53 Review of Systems Review of Systems Yes all other systems are reviewed and are negative [facility] Past Medical History Medical History No active medical problems Social History Social History Household Members: None Housing: Other Housing Other:: [facility] dorm Do you presently have visiting nurse or other home services: No Smoked in Last 30 Days: No Use of substances other than those prescribed or required for medical reasons: No Advance Directives: No Advance Directives Information Provided: No Patient : No service: No Current occupational status: student Physical Exam ED Vital Signs: Vital Signs - 24 hr 11/14/22 21:55 11/14/22 23:49 Temperature 97.6 F 98.4 F Pulse Rate 94 98 Respiratory Rate 20 14 Blood Pressure 113/53 L 114/63 Pulse Oximetry 95 100 Oxygen Delivery Method Room Air Room Air BMI result Body Mass Index 22.6 Appearance: Alert. Oriented X3. No acute distress. Anxious Eyes: PERRLA, injected bilateral conjunctiva ENT: Pharynx normal. Oral Mucosa moist lips and tongue normal Neck: Normal inspection. Neck supple. CVS: Normal heart rate and rhythm. Pulses normal. Respiratory: No respiratory distress. Equal air entry bilateral, no wheezing/rales/rhonchi Abdomen: Soft and nontender. Bowel sounds are present, no mass palpable, no CVA tenderness Skin: Skin warm and dry. Normal skin color. Normal skin turgor. No significant rash noted Extremities: No lower extremity edema. No calf tenderness Neuro: Oriented X 3. No motor deficit. No sensory deficit.No cerebellar signs , cranial nerves II-XII intact Medical Decision Making Medical Decision Making [facility] Narrative: Patient with mild allergies was given Benadryl and Decadron in the ER felt much better discharge patient home on prednisone Lab Data [facility] Lab Attestation statement: I reviewed the patient's lab results. 11/14/22 22:10 11/14/22 22:10 Labs: Lab Results 11/14/22 11/14/22 Range/Units 22:10 22:10 WBC 12.1 H (4.8-10.8) X10*3/uL RBC 4.18 L (4.20-5.50) X10*6/uL Hgb 11.5 L (12.0-16.0) g/dl Hct 35.1 L (37.0-47.0) % MCV 84.0 (80.0-98.0) fL MCH 27.5 (27.0-33.0) pg MCHC 32.8 (31.0-35.0) g/dl RDW 13.0 (11.0-16.0) % Plt Count 369 (160-400) X10*3/uL MPV 11.1 (9.4-12.3) fL Immature Gran % (Auto) 0.3 (0.0-0.4) % Neut % (Auto) 42.9 L (45-73) % Lymph % (Auto) 48.3 H (20-40) % [place] % (Auto) 4.5 (2-11) % Eos % (Auto) 3.8 (0-4) % Baso % (Auto) 0.2 (0-2) % Lymph # (Auto) 5.9 H (1.2-4.9) X10*3/uL [place] # (Auto) 0.5 (0.1-1.2) X10*3/uL Eos # (Auto) 0.5 H (0.0-0.4) X10*3/uL Baso # (Auto) 0.0 (0.0-0.2) X10*3/uL Abs Immat Gran (auto) 0.04 H (0.00-0.03) X10*3/uL Absolute Neuts (auto) 5.2 (2.0-8.3) x10*3/uL Absolute Nucleated RBC 0.000 (0.0-0.012) X10*3/uL Nucleated RBC % (auto) 0.0 (0.0-0.2) /100WBC Smear Tech's Comments VERIFIED Sodium 142 (135-145) mmol/L Potassium 3.1 L (3.3-5.1) mmol/L Chloride 108 (96-108) mmol/L Carbon Dioxide 21 L (22-29) mmol/L Anion Gap 16 (12-20) BUN 12 (9-16) mg/dL Creatinine 0.76 (0.5-1.4) mg/dL Estim Creat Clear Calc 91.8 Estimated GFR > 60 Random Glucose 186 H (60-115) mg/dL Calcium 8.7 (8.4-10.2) mg/dL Medications Administered Discontinued Medications Generic Name Dose Route Start Last Admin Trade Name Freq PRN Reason Stop Dose Admin Dexamethasone 10 mg 11/14/22 22:34 11/14/22 23:30 Dexamethasone 2 Mg Tablet PO 11/14/22 22:35 10 mg ONCE ONE Administration Diphenhydramine HCl 50 mg 11/14/22 22:34 11/14/22 23:30 Diphenhydramine Hcl 25 Mg Capsule PO 11/14/22 22:35 50 mg ONCE ONE Administration Ondansetron HCl 4 mg 11/14/22 22:35 11/14/22 23:30 Ondansetron Odt 4 Mg Tab.Rapdis TRANSLINGU 11/14/22 22:36 4 mg ONCE ONE Administration Discharge Plan Discharge Clinical Impression: Allergic reaction Patient Disposition: Home, Self-Care Instructions: General Allergic Reaction (ED) Additional Instructions: Likely use had allergic reaction etiology not very clear Continue cetirizine and ketoprofen eyedrops Prednisone as prescribed for 5 days Follow with PCP as needed Prescriptions: New prednisone 20 mg tablet 40 mg PO DAILY Qty: 10 0RF No Action docusate sodium [Colace] 100 mg capsule 100 mg PO BID PRN (Reason: constipation) Qty: 30 0RF oxycodone 5 mg tablet 5 mg PO Q4H PRN (Reason: pain (scale score 7-10)) Qty: 20 0RF Interventions: ED Discharge Assessment Last Done: 11/15/22 00:04 Discharge Date/Time: 11/15/22 00:04
[2022-11-14 22:33] LABS: Anion Gap 16 (12-20); Blood Urea Nitrogen 12 mg/dL (9-16); Calcium 8.7 mg/dL (8.4-10.2); Carbon Dioxide 21 mmol/L (22-29); Chloride 108 mmol/L (96-108); Creatinine Clr Calc Pharmacy 91.8; Estimated Glomerular Filt Rate > 60; Glucose Random 186 mg/dL (60-115); Potassium 3.1 mmol/L (3.3-5.1); Sodium 142 mmol/L (135-145)
[2022-11-14 22:41] LABS: SLIDE REVIEW VERIFIED
[2022-11-14] MEDS: Ondansetron ODT 4 MG TAB.RAPDIS TRANSLINGU (23:30)
[2022-11-14] MEDS: dexAMETHasone 2 MG TABLET 10 MG PO (23:30)
[2022-11-14] MEDS: diphenhydrAMINE HCL 25 MG CAPSULE 50 MG PO (23:30)
[2022-11-14 23:49] VITALS: BP 114/63; PULSE 98; RESP 14; TEMP 36.9; O2SAT 100
--- NOTE | 2022-11-15 00:03 | PC.NURSE ---
pt medicated according to mar. friends at bedside. pt calm and cooperative. iv removed at discharge. pt ambulatory at discharge. pt friends to drive pt home. pt provided with discharge packet. pt verbalized understanding of discharge plan
== END 2022-11-15 00:04 | disposition home or self-care (01) ==
PROVIDERS: Emergency Provider Internal Medicine
DX: R21 Rash and other nonspecific skin eruption (principal); T78.40XA Allergy, unspecified, initial encounter; X58.XXXA Exposure to other specified factors, initial encounter; Z79.899 Other long term (current) drug therapy
CPT/HCPCS: 36415; 80048; 85025; 99283; 99284; J8540